=== PATIENT | male | born 1955 | race Caucasian/White ===

== ENCOUNTER 2017-10-08 02:48 | Emergency (ER) | payer MEDICAID ==
[~2017-10-08] VITALS: Ht 160 cm; Wt 59.0 kg
[2017-10-08] MEDS ORDERED: IBUPROFEN 600MG TABLET PO ONE (04:00)
[2017-10-08] MEDS ORDERED: ACETAMINOPHEN 500MG TABLET PO ONE (04:00)
[2017-10-08 05:02] VITALS: BP 161/78
== END 2017-10-08 05:06 | disposition home or self-care (01) ==
LOC: ER 02:48
DX: M54.5 Low back pain (principal); G20 Parkinson's disease
CPT/HCPCS: 99283; Z7610

== ENCOUNTER 2018-05-03 17:50 | Inpatient (IN) | payer MEDICARE, MEDICAID ==
[~2018-05-03] VITALS: Ht 175.3 cm; Wt 55.8 kg
[2018-05-03] MEDS ORDERED: FAMOTIDINE 20MG/2ML VIAL IV ONE (18:45)
[2018-05-03] MEDS ORDERED: SODIUM CHLORIDE 0.9% 1000ML BAG (SEPSIS BOLUS) IV ONE (18:45)
[2018-05-03] MEDS ORDERED: LORAZEPAM 2MG/ML CPJ IV ONE (18:45)
[2018-05-03 19:35] LABS: BASOPHILS % 1.1 % (0.0-2.0); EOSINOPHILS % 0.5 % (0.0-5.0); HEMATOCRIT. 31.5 % (42.0-52.0); HEMOGLOBIN. 10.3 g/dL (14.0-18.0); MEAN CORPUSCULAR HEMOGLOBIN 26.9 pg (28.0-32.0); MEAN CORPUSCULAR VOLUME 82.7 fL (80.0-94.0); MEAN PLATELET VOLUME 6.9 fl (7.4-10.4); MONOCYTES % 12.7 % (2.0-8.0); NEUTROPHILS % 68.7 % (40.0-76.0); PLATELET 361 x1000/uL (130-400); RED BLOOD CELL COUNT 3.81 mill/uL (4.7-6.1); RED CELL DISTRIBUTION WIDTH 15.2 % (11.6-14.6)
[2018-05-03 19:39] LABS: CHLORIDE 110 mEq/L (98-107); INR 1.1; PROTHROMBIN TIME 10.9 sec (9.1-11.1)
[2018-05-03] MEDS ORDERED: HYDROMORPHONE HCL/PF 2MG/ML CPJ IV PRN (22:45)
[2018-05-03] MEDS ORDERED: HYDRALAZINE 20MG/ML VIAL IV PRN (22:45)
[2018-05-03] MEDS ORDERED: GUAIFENESIN 200MG/10ML SUGAR FREE UDC PO PRN (22:45)
[2018-05-03] MEDS ORDERED: IPRATROPIUM/ALBUTEROL 0.5-3(2.5)MG/3ML NEB INH PRN (22:45)
[2018-05-03] MEDS ORDERED: NA PHOS,M-B/NA PHOS,DI-BA ENEMA 118ML PR PRN (22:45)
[2018-05-03] MEDS ORDERED: DIPHENHYDRAMINE 50MG/ML VIAL IV PRN (22:45)
[2018-05-03] MEDS ORDERED: HYDROCODONE/ACETAMINOPHEN 5/325MG TABLET PO PRN (22:45)
[2018-05-03] MEDS ORDERED: CLONIDINE 0.1MG TABLET PO PRN (22:45)
[2018-05-03] MEDS ORDERED: POTASSIUM CHLORIDE 20MEQ TABLET SR PO ONE (22:45)
[2018-05-03] MEDS ORDERED: LORAZEPAM 2MG/ML CPJ IV PRN (22:45)
[2018-05-03] MEDS ORDERED: ONDANSETRON HCL 4MG/2ML INJ IV PRN (22:45)
[2018-05-03 23:45] VITALS: BP 150/75
[2018-05-04] VITALS: BP 150/75
[2018-05-04] MEDS ORDERED: POTASSIUM CHLORIDE 20MEQ TABLET SR PO SCH (00:05)
[2018-05-04] MEDS ORDERED: CARB1TAB9 PO (00:31)
[2018-05-04] MEDS ORDERED: ENTA200T2 PO (00:31)
[2018-05-04] MEDS ORDERED: PRAM1.5T6 PO (00:31)
[2018-05-04 08:00] VITALS: BP 131/57
[2018-05-04 08:06] LABS: CHLORIDE 110 mEq/L (98-107)
[2018-05-04 08:07] LABS: BASOPHILS % 0.8 % (0.0-2.0); EOSINOPHILS % 0.2 % (0.0-5.0); HEMATOCRIT. 33.8 % (42.0-52.0); LYMPHOCYTES % 18.4 % (20.0-50.0); MEAN PLATELET VOLUME 7.5 fl (7.4-10.4); MONOCYTES % 10.4 % (2.0-8.0); NEUTROPHILS % 70.2 % (40.0-76.0); PLATELET 378 x1000/uL (130-400); RED BLOOD CELL COUNT 4.07 mill/uL (4.7-6.1); RED CELL DISTRIBUTION WIDTH 15.1 % (11.6-14.6)
[2018-05-04 08:15] LABS: CLARITY URINE CLEAR (CLEAR); COLOR URINE YELLOW (YELLOW); KETONES URINE 1+ (NEGATIVE); LEUKOCYTE ESTERASE URINE NEGATIVE (NEGATIVE); NITRITE URINE NEGATIVE (NEGATIVE); OCCULT BLOOD URINE NEGATIVE (NEGATIVE); PH URINE 7.5 (4.5-8.0); PROTEIN URINE NEGATIVE (NEGATIVE); SPECIFIC GRAVITY URINE 1.018 (1.005-1.030); UROBILINOGEN URINE 0.2 E.U./dL (0.2-1.0)
[2018-05-04 08:15] LABS: CREATINE KINASE 212 IU/L (39-308)
[2018-05-04 08:17] LABS: CREATINE KINASE MB FRACTION 4.7 ng/mL (0.5-3.6)
[2018-05-04] MEDS: ASPIRIN 81MG EC TABLET PO SCH (08:43)
[2018-05-04] MEDS: ENOXAPARIN 40MG/0.4ML SYR SUBCUT SCH (09:00)
[2018-05-04 12:00] VITALS: BP 121/66
[2018-05-04 16:00] VITALS: BP 128/74
[2018-05-04 16:56] LABS: CREATINE KINASE 200 IU/L (39-308)
[2018-05-04 16:57] LABS: CREATINE KINASE MB FRACTION 3.7 ng/mL (0.5-3.6)
[2018-05-04] MEDS: CARBIDOPA/LEVODOPA 25/100MG TABLET CR PO SCH ×2 (17:51→20:26)
[2018-05-04] MEDS: SODIUM CHL 0.45% + KCL 20MEQ/L 1,000 ML IV SCH (17:51)
[2018-05-04] MEDS: SODIUM CHLORIDE 0.9% INJ 3ML FLUSH IVF SCH ×2 (17:53→20:26)
[2018-05-04 20:00] VITALS: BP 93/51
[2018-05-04 21:20] LABS: VITAMIN B12 SERUM 337 pg/mL (211-911)
[2018-05-05] VITALS: BP_SYST 119; BP_SYST 134; BP_DIAS 49; BP_DIAS 67
[2018-05-05] MEDS: DEXT 5%/0.45% NACL 1000ML 1,000 ML IV SCH ×2 (00:05→13:29)
[2018-05-05] MEDS: SODIUM CHL 0.45% + KCL 20MEQ/L 1,000 ML IV SCH (02:12)
[2018-05-05 04:00] VITALS: BP 127/71
[2018-05-05] MEDS: SODIUM CHLORIDE 0.9% INJ 3ML FLUSH IVF SCH ×3 (05:40→21:49)
[2018-05-05] MEDS: ASPIRIN 81MG EC TABLET PO SCH (08:52)
[2018-05-05] MEDS: CARBIDOPA/LEVODOPA 25/100MG TABLET CR PO SCH ×4 (08:52→21:49)
[2018-05-05] MEDS: ENOXAPARIN 40MG/0.4ML SYR SUBCUT SCH (08:55)
[2018-05-05] MEDS: MAGNESIUM/ALUMINUM HYDROXIDE/SIMETHICONE 30ML UDC PO PRN (10:49)
[2018-05-05 20:00] VITALS: BP_SYST 100; BP_SYST 121; BP_DIAS 73; BP_DIAS 80
[2018-05-06] VITALS: BP 133/67
[2018-05-06] MEDS: DEXT 5%/0.45% NACL 1000ML 1,000 ML IV SCH ×2 (03:17→16:28)
[2018-05-06 04:00] VITALS: BP 157/80
[2018-05-06] MEDS: SODIUM CHLORIDE 0.9% INJ 3ML FLUSH IVF SCH ×3 (05:34→22:58)
[2018-05-06 08:00] VITALS: BP 135/74
[2018-05-06] MEDS: ENOXAPARIN 40MG/0.4ML SYR SUBCUT SCH (09:00)
[2018-05-06] MEDS: CARBIDOPA/LEVODOPA 25/100MG TABLET CR PO SCH ×4 (10:18→21:23)
[2018-05-06] MEDS: ASPIRIN 81MG EC TABLET PO SCH (10:18)
[2018-05-06 12:00] VITALS: BP_SYST 121; BP_SYST 124; BP_SYST 127; BP_DIAS 72; BP_DIAS 73; BP_DIAS 88
[2018-05-06 13:06] LABS: HIV SCREEN 4G Non Reactive (Non Reactive)
[2018-05-06 16:00] VITALS: BP 94/52
[2018-05-06 20:00] VITALS: BP 116/67
[2018-05-07] VITALS: BP 101/50
[2018-05-07 04:00] VITALS: BP 100/69
[2018-05-07 08:00] VITALS: BP_SYST 118; BP_SYST 122; BP_DIAS 59; BP_DIAS 61
[2018-05-07] MEDS: DEXT 5%/0.45% NACL 1000ML 1,000 ML IV SCH (09:24)
[2018-05-07] MEDS: ENOXAPARIN 40MG/0.4ML SYR SUBCUT SCH (09:24)
[2018-05-07] MEDS: CARBIDOPA/LEVODOPA 25/100MG TABLET CR PO SCH ×4 (09:24→21:36)
[2018-05-07] MEDS: ASPIRIN 81MG EC TABLET PO SCH (09:24)
[2018-05-07 12:00] VITALS: BP 113/59
[2018-05-07] MEDS: SODIUM CHLORIDE 0.9% INJ 3ML FLUSH IVF SCH ×2 (15:10→21:36)
[2018-05-07] MEDS: DOCUSATE SODIUM 100MG CAPSULE PO PRN (15:14)
[2018-05-07 16:00] VITALS: BP 124/65
[2018-05-07 20:00] VITALS: BP 119/73
[2018-05-08] VITALS: BP_SYST 126; BP_SYST 132; BP_DIAS 74
[2018-05-08] MEDS: DEXT 5%/0.45% NACL 1000ML 1,000 ML IV SCH ×2 (00:22→09:04)
[2018-05-08 04:00] VITALS: BP 150/84
[2018-05-08] MEDS: SODIUM CHLORIDE 0.9% INJ 3ML FLUSH IVF SCH ×3 (06:38→21:47)
[2018-05-08 08:00] VITALS: BP 120/68
[2018-05-08] MEDS: CARBIDOPA/LEVODOPA 25/100MG TABLET CR PO SCH ×4 (09:02→21:47)
[2018-05-08] MEDS: ENOXAPARIN 40MG/0.4ML SYR SUBCUT SCH (09:02)
[2018-05-08] MEDS: ASPIRIN 81MG EC TABLET PO SCH (09:02)
[2018-05-08 12:00] VITALS: BP 120/71
[2018-05-08 16:00] VITALS: BP 133/79
[2018-05-08 20:00] VITALS: BP_SYST 143; BP_SYST 154; BP_DIAS 85; BP_DIAS 88
[2018-05-09] VITALS: BP 133/76
[2018-05-09] MEDS: DEXT 5%/0.45% NACL 1000ML 1,000 ML IV SCH (02:48)
[2018-05-09 04:00] VITALS: BP 117/81
[2018-05-09] MEDS: SODIUM CHLORIDE 0.9% INJ 3ML FLUSH IVF SCH ×2 (05:02→21:42)
[2018-05-09 08:00] VITALS: BP_SYST 130; BP_SYST 139; BP_DIAS 77; BP_DIAS 80
[2018-05-09] MEDS: ASPIRIN 81MG EC TABLET PO SCH (08:45)
[2018-05-09] MEDS: CARBIDOPA/LEVODOPA 25/100MG TABLET CR PO SCH ×4 (08:45→21:42)
[2018-05-09] MEDS: ENOXAPARIN 40MG/0.4ML SYR SUBCUT SCH (08:45)
[2018-05-09 12:00] VITALS: BP 128/77
[2018-05-09 16:00] VITALS: BP 139/69
[2018-05-09 20:00] VITALS: BP_SYST 100; BP_SYST 115; BP_DIAS 64; BP_DIAS 71
[2018-05-10] VITALS: BP 130/78
[2018-05-10 04:00] VITALS: BP 143/77
[2018-05-10] MEDS: SODIUM CHLORIDE 0.9% INJ 3ML FLUSH IVF SCH ×3 (06:27→21:41)
[2018-05-10] MEDS: DEXT 5%/0.45% NACL 1000ML 1,000 ML IV SCH ×2 (07:18→13:25)
[2018-05-10 07:20] LABS: CHLORIDE 104 mEq/L (98-107)
[2018-05-10 07:25] LABS: BASOPHILS % 0.9 % (0.0-2.0); EOSINOPHILS % 0.8 % (0.0-5.0); HEMOGLOBIN. 12.1 g/dL (14.0-18.0); LYMPHOCYTES % 16.4 % (20.0-50.0); MEAN CORPUSCULAR VOLUME 82.6 fL (80.0-94.0); MEAN PLATELET VOLUME 7.7 fl (7.4-10.4); MONOCYTES % 10.7 % (2.0-8.0); NEUTROPHILS % 71.2 % (40.0-76.0); PLATELET 348 x1000/uL (130-400); RED BLOOD CELL COUNT 4.48 mill/uL (4.7-6.1); RED CELL DISTRIBUTION WIDTH 15.8 % (11.6-14.6)
[2018-05-10 08:00] VITALS: BP_SYST 134; BP_SYST 142; BP_DIAS 73; BP_DIAS 79
[2018-05-10] MEDS: ENOXAPARIN 40MG/0.4ML SYR SUBCUT SCH (09:36)
[2018-05-10] MEDS: ASPIRIN 81MG EC TABLET PO SCH (09:36)
[2018-05-10] MEDS: CARBIDOPA/LEVODOPA 25/100MG TABLET CR PO SCH ×4 (09:36→21:41)
[2018-05-10 12:00] VITALS: BP 131/76
[2018-05-10 16:00] VITALS: BP 122/79
[2018-05-10] MEDS: LORAZEPAM 2MG/ML CPJ IV PRN (19:57)
[2018-05-10 20:00] VITALS: BP 111/69
[2018-05-11] VITALS: BP 103/60
[2018-05-11] MEDS: DEXT 5%/0.45% NACL 1000ML 1,000 ML IV SCH ×2 (04:12→16:05)
[2018-05-11] MEDS: SODIUM CHLORIDE 0.9% INJ 3ML FLUSH IVF SCH ×3 (06:22→22:00)
[2018-05-11 08:00] VITALS: BP 119/69
[2018-05-11] MEDS: ENOXAPARIN 40MG/0.4ML SYR SUBCUT SCH (09:00)
[2018-05-11] MEDS: DOCUSATE SODIUM 100MG CAPSULE PO PRN (10:50)
[2018-05-11] MEDS: ASPIRIN 81MG EC TABLET PO SCH (10:50)
[2018-05-11] MEDS: LORAZEPAM 2MG/ML CPJ IV PRN (10:50)
[2018-05-11] MEDS: CARBIDOPA/LEVODOPA 25/100MG TABLET CR PO SCH ×3 (10:50→17:38)
[2018-05-11 12:00] VITALS: BP 119/74
[2018-05-11 16:00] VITALS: BP 128/77
[2018-05-11 20:00] VITALS: BP 119/74
[2018-05-12] VITALS: BP 109/56
[2018-05-12] MEDS: CARBIDOPA/LEVODOPA 25/100MG TABLET CR PO SCH ×5 (00:05→21:19)
[2018-05-12 04:00] VITALS: BP 114/66
[2018-05-12] MEDS: SODIUM CHLORIDE 0.9% INJ 3ML FLUSH IVF SCH ×3 (06:35→21:21)
[2018-05-12 08:00] VITALS: BP 129/82
[2018-05-12] MEDS: ASPIRIN 81MG EC TABLET PO SCH (09:11)
[2018-05-12] MEDS: ENOXAPARIN 40MG/0.4ML SYR SUBCUT SCH (09:12)
[2018-05-12 12:00] VITALS: BP 131/62
[2018-05-12] MEDS: DEXT 5%/0.45% NACL 1000ML 1,000 ML IV SCH ×2 (12:40→20:00)
[2018-05-12 16:00] VITALS: BP 134/73
[2018-05-12] MEDS: TRIHEXYPHENIDYL HCL 2 MG TABLET PO SCH (17:59)
[2018-05-12 20:00] VITALS: BP 129/64
[2018-05-13] VITALS (7 sets, daily range): BP systolic 111–158; BP diastolic 56–86
[2018-05-13] MEDS: DEXT 5%/0.45% NACL 1000ML 1,000 ML IV SCH ×2 (02:56→17:03)
[2018-05-13] MEDS: SODIUM CHLORIDE 0.9% INJ 3ML FLUSH IVF SCH ×3 (06:46→22:05)
[2018-05-13] MEDS: ASPIRIN 81MG EC TABLET PO SCH (10:08)
[2018-05-13] MEDS: TRIHEXYPHENIDYL HCL 2 MG TABLET PO SCH ×2 (10:09→18:17)
[2018-05-13] MEDS: CARBIDOPA/LEVODOPA 25/100MG TABLET CR PO SCH ×4 (10:10→20:18)
[2018-05-13] MEDS: ENOXAPARIN 40MG/0.4ML SYR SUBCUT SCH (10:13)
[2018-05-14] VITALS (7 sets, daily range): BP systolic 112–165; BP diastolic 64–86
[2018-05-14] MEDS: DEXT 5%/0.45% NACL 1000ML 1,000 ML IV SCH ×2 (05:11→22:06)
[2018-05-14] MEDS: SODIUM CHLORIDE 0.9% INJ 3ML FLUSH IVF SCH ×3 (05:19→22:04)
[2018-05-14] MEDS: CARBIDOPA/LEVODOPA 25/100MG TABLET CR PO SCH ×4 (08:24→22:04)
[2018-05-14] MEDS: ENOXAPARIN 40MG/0.4ML SYR SUBCUT SCH (08:24)
[2018-05-14] MEDS: ASPIRIN 81MG EC TABLET PO SCH (08:24)
[2018-05-14] MEDS: TRIHEXYPHENIDYL HCL 2 MG TABLET PO SCH ×2 (09:16→17:40)
[2018-05-15] VITALS: BP 111/75
[2018-05-15 04:00] VITALS: BP 126/60
[2018-05-15] MEDS: SODIUM CHLORIDE 0.9% INJ 3ML FLUSH IVF SCH ×3 (05:35→20:43)
[2018-05-15 08:00] VITALS: BP 116/75
[2018-05-15] MEDS: CARBIDOPA/LEVODOPA 25/100MG TABLET CR PO SCH ×4 (09:55→20:43)
[2018-05-15] MEDS: TRIHEXYPHENIDYL HCL 2 MG TABLET PO SCH ×2 (09:55→17:52)
[2018-05-15] MEDS: ENOXAPARIN 40MG/0.4ML SYR SUBCUT SCH (09:55)
[2018-05-15] MEDS: ASPIRIN 81MG EC TABLET PO SCH (09:55)
[2018-05-15 12:00] VITALS: BP 123/78
[2018-05-15] MEDS: DEXT 5%/0.45% NACL 1000ML 1,000 ML IV SCH (13:23)
[2018-05-15 16:00] VITALS: BP 102/67
[2018-05-15 20:00] VITALS: BP_SYST 123; BP_SYST 128; BP_DIAS 74; BP_DIAS 75
[2018-05-16] VITALS: BP 120/75
[2018-05-16] MEDS: DEXT 5%/0.45% NACL 1000ML 1,000 ML IV SCH ×2 (02:50→17:42)
[2018-05-16 04:00] VITALS: BP 128/74
[2018-05-16] MEDS: SODIUM CHLORIDE 0.9% INJ 3ML FLUSH IVF SCH ×3 (05:49→21:13)
[2018-05-16 08:00] VITALS: BP 150/69
[2018-05-16] MEDS: TRIHEXYPHENIDYL HCL 2 MG TABLET PO SCH ×2 (09:20→17:40)
[2018-05-16] MEDS: ASPIRIN 81MG EC TABLET PO SCH (09:21)
[2018-05-16] MEDS: CARBIDOPA/LEVODOPA 25/100MG TABLET CR PO SCH ×4 (09:21→21:13)
[2018-05-16] MEDS: ENOXAPARIN 40MG/0.4ML SYR SUBCUT SCH (09:22)
[2018-05-16 12:00] VITALS: BP 113/70
[2018-05-16 16:00] VITALS: BP 121/87
[2018-05-16 20:00] VITALS: BP_SYST 121; BP_SYST 140; BP_DIAS 76; BP_DIAS 87
[2018-05-17] VITALS: BP 120/70
[2018-05-17 04:00] VITALS: BP 135/77
[2018-05-17] MEDS: SODIUM CHLORIDE 0.9% INJ 3ML FLUSH IVF SCH ×3 (05:41→20:30)
[2018-05-17] MEDS: DEXT 5%/0.45% NACL 1000ML 1,000 ML IV SCH ×2 (05:42→18:23)
[2018-05-17 08:00] VITALS: BP 136/79
[2018-05-17] MEDS: TRIHEXYPHENIDYL HCL 2 MG TABLET PO SCH ×2 (08:41→17:34)
[2018-05-17] MEDS: ASPIRIN 81MG EC TABLET PO SCH (08:41)
[2018-05-17] MEDS: CARBIDOPA/LEVODOPA 25/100MG TABLET CR PO SCH ×4 (08:42→20:29)
[2018-05-17] MEDS: ENOXAPARIN 40MG/0.4ML SYR SUBCUT SCH (08:43)
[2018-05-17 12:00] VITALS: BP 133/78
[2018-05-17 16:00] VITALS: BP 124/66
[2018-05-17 20:00] VITALS: BP 107/62
[2018-05-17] MEDS: ACETAMINOPHEN 325MG TABLET PO PRN (20:29)
[2018-05-18] VITALS (7 sets, daily range): BP systolic 114–136; BP diastolic 60–86
[2018-05-18] MEDS: MAGNESIUM/ALUMINUM HYDROXIDE/SIMETHICONE 30ML UDC PO PRN (01:45)
[2018-05-18] MEDS: DOCUSATE SODIUM 100MG CAPSULE PO PRN (01:45)
[2018-05-18] MEDS: DEXT 5%/0.45% NACL 1000ML 1,000 ML IV SCH ×2 (05:15→21:08)
[2018-05-18] MEDS: SODIUM CHLORIDE 0.9% INJ 3ML FLUSH IVF SCH ×3 (05:15→21:09)
[2018-05-18] MEDS: ASPIRIN 81MG EC TABLET PO SCH (08:38)
[2018-05-18] MEDS: CARBIDOPA/LEVODOPA 25/100MG TABLET CR PO SCH ×4 (08:38→21:08)
[2018-05-18] MEDS: ENOXAPARIN 40MG/0.4ML SYR SUBCUT SCH (08:38)
[2018-05-18] MEDS: TRIHEXYPHENIDYL HCL 2 MG TABLET PO SCH ×2 (08:39→17:22)
[2018-05-19] VITALS: BP 117/64
[2018-05-19 04:00] VITALS: BP_SYST 103; BP_SYST 104; BP_DIAS 54; BP_DIAS 61
[2018-05-19] MEDS: SODIUM CHLORIDE 0.9% INJ 3ML FLUSH IVF SCH ×3 (06:00→21:54)
[2018-05-19 08:00] VITALS: BP 123/63
[2018-05-19] MEDS: ASPIRIN 81MG EC TABLET PO SCH (09:51)
[2018-05-19] MEDS: TRIHEXYPHENIDYL HCL 2 MG TABLET PO SCH ×2 (09:51→17:03)
[2018-05-19] MEDS: CARBIDOPA/LEVODOPA 25/100MG TABLET CR PO SCH ×4 (09:51→21:53)
[2018-05-19] MEDS: ENOXAPARIN 40MG/0.4ML SYR SUBCUT SCH (09:52)
[2018-05-19 12:00] VITALS: BP 113/68
[2018-05-19] MEDS: DEXT 5%/0.45% NACL 1000ML 1,000 ML IV SCH (13:15)
[2018-05-19 16:00] VITALS: BP 125/62
[2018-05-19 20:00] VITALS: BP 145/78
[2018-05-20] VITALS: BP_SYST 116; BP_SYST 120; BP_DIAS 65; BP_DIAS 67
[2018-05-20] MEDS: DEXT 5%/0.45% NACL 1000ML 1,000 ML IV SCH (00:05)
[2018-05-20 04:00] VITALS: BP 100/67
[2018-05-20 06:22] LABS: BASOPHILS % 0.8 % (0.0-2.0); EOSINOPHILS % 0.5 % (0.0-5.0); HEMATOCRIT. 35.9 % (42.0-52.0); HEMOGLOBIN. 11.7 g/dL (14.0-18.0); LYMPHOCYTES % 16.1 % (20.0-50.0); MEAN CORPUSCULAR HEMOGLOBIN 26.9 pg (28.0-32.0); MEAN CORPUSCULAR VOLUME 82.2 fL (80.0-94.0); MEAN PLATELET VOLUME 7.4 fl (7.4-10.4); MONOCYTES % 12.8 % (2.0-8.0); NEUTROPHILS % 69.8 % (40.0-76.0); PLATELET 442 x1000/uL (130-400); RED BLOOD CELL COUNT 4.37 mill/uL (4.7-6.1); RED CELL DISTRIBUTION WIDTH 15.5 % (11.6-14.6)
[2018-05-20] MEDS: SODIUM CHLORIDE 0.9% INJ 3ML FLUSH IVF SCH ×2 (06:48→12:54)
[2018-05-20 07:29] LABS: CHLORIDE 103 mEq/L (98-107)
[2018-05-20 08:00] VITALS: BP 117/62
[2018-05-20] MEDS: TRIHEXYPHENIDYL HCL 2 MG TABLET PO SCH ×2 (09:35→16:45)
[2018-05-20] MEDS: ASPIRIN 81MG EC TABLET PO SCH (09:35)
[2018-05-20] MEDS: CARBIDOPA/LEVODOPA 25/100MG TABLET CR PO SCH ×4 (09:35→21:20)
[2018-05-20] MEDS: ENOXAPARIN 40MG/0.4ML SYR SUBCUT SCH (09:36)
[2018-05-20] MEDS: ACETAMINOPHEN 325MG TABLET PO PRN (10:16)
[2018-05-20 12:00] VITALS: BP 116/59
[2018-05-20 16:00] VITALS: BP 125/64
[2018-05-20 20:00] VITALS: BP 100/55
[2018-05-21] VITALS: BP 105/71
[2018-05-21] MEDS: SODIUM CHLORIDE 0.9% INJ 3ML FLUSH IVF SCH ×4 (00:12→21:26)
[2018-05-21] MEDS: DEXT 5%/0.45% NACL 1000ML 1,000 ML IV SCH ×2 (02:41→18:08)
[2018-05-21 04:00] VITALS: BP 133/71
[2018-05-21 08:00] VITALS: BP 144/71
[2018-05-21] MEDS: TRIHEXYPHENIDYL HCL 2 MG TABLET PO SCH ×2 (09:59→18:07)
[2018-05-21] MEDS: CARBIDOPA/LEVODOPA 25/100MG TABLET CR PO SCH ×4 (09:59→21:27)
[2018-05-21] MEDS: ASPIRIN 81MG EC TABLET PO SCH (09:59)
[2018-05-21] MEDS: ENOXAPARIN 40MG/0.4ML SYR SUBCUT SCH (10:00)
[2018-05-21 12:00] VITALS: BP 141/75
[2018-05-21 16:00] VITALS: BP 119/71
[2018-05-21 20:00] VITALS: BP 122/77
[2018-05-22] VITALS: BP_SYST 122; BP_SYST 123; BP_DIAS 70; BP_DIAS 76
[2018-05-22 04:00] VITALS: BP 99/62
[2018-05-22] MEDS: DEXT 5%/0.45% NACL 1000ML 1,000 ML IV SCH ×2 (05:51→20:52)
[2018-05-22] MEDS: SODIUM CHLORIDE 0.9% INJ 3ML FLUSH IVF SCH ×3 (05:51→20:53)
[2018-05-22 08:00] VITALS: BP 112/68
[2018-05-22] MEDS: ASPIRIN 81MG EC TABLET PO SCH (08:43)
[2018-05-22] MEDS: CARBIDOPA/LEVODOPA 25/100MG TABLET CR PO SCH ×4 (08:43→20:52)
[2018-05-22] MEDS: ENOXAPARIN 40MG/0.4ML SYR SUBCUT SCH (08:43)
[2018-05-22] MEDS: TRIHEXYPHENIDYL HCL 2 MG TABLET PO SCH ×2 (08:44→18:18)
[2018-05-22 12:00] VITALS: BP 107/54
[2018-05-22 16:00] VITALS: BP 130/77
[2018-05-22 20:00] VITALS: BP 120/80
[2018-05-23] VITALS: BP 135/85
[2018-05-23 04:00] VITALS: BP 130/78
[2018-05-23] MEDS: SODIUM CHLORIDE 0.9% INJ 3ML FLUSH IVF SCH ×2 (06:06→14:01)
[2018-05-23 08:00] VITALS: BP 140/74
[2018-05-23] MEDS: ENOXAPARIN 40MG/0.4ML SYR SUBCUT SCH (08:23)
[2018-05-23] MEDS: ASPIRIN 81MG EC TABLET PO SCH (08:23)
[2018-05-23] MEDS: TRIHEXYPHENIDYL HCL 2 MG TABLET PO SCH ×2 (08:23→14:01)
[2018-05-23] MEDS: CARBIDOPA/LEVODOPA 25/100MG TABLET CR PO SCH ×2 (08:23→14:01)
[2018-05-23] MEDS: DEXT 5%/0.45% NACL 1000ML 1,000 ML IV SCH (09:38)
[2018-05-23 12:00] VITALS: BP 114/76
[2018-05-23 16:00] VITALS: BP 114/68
[2018-05-23 16:45] VITALS: BP 114/68
== END 2018-05-23 17:45 | DRG 52 ==
LOC: ER 17:50 → 5WST 22:11 → ENRESERV 22:30
PROVIDERS: ADMIT Internal Medicine; ATTEND Internal Medicine
DX: G93.40 Encephalopathy, unspecified (principal); I95.9 Hypotension, unspecified; E46 Unspecified protein-calorie malnutrition; G20 Parkinson's disease; T74.01XA Adult neglect or abandonment, confirmed, initial encounter; D64.9 Anemia, unspecified; E87.6 Hypokalemia; R00.0 Tachycardia, unspecified; E86.0 Dehydration; R62.7 Adult failure to thrive; Z74.01 Bed confinement status; Z68.1 Body mass index [BMI] 19.9 or less, adult; Z79.899 Other long term (current) drug therapy; Z59.0 Homelessness
CPT/HCPCS: 36415; 71045; 80048; 80061; 82550; 82553; 82607; 82962; 83605; 83735; 84145; 84443; 84484; 87389; 93005; 93306; 96361; 96374; 96375; 97116; 97162; 97530; 99285; J1200; J1650; J2060; J3480; J3490; J7030; J7042; J7620